=== PATIENT | female | born 1940 | race Caucasian/White ===

== ENCOUNTER → 2016-09-22 | Outpatient (CLI) | payer OTHER ==
--- NOTE | 2016-09-22 18:12 | MA ---
Screening Digital Mammogram With Tomosynthesis and iCAD Indication: Routine screening. Technique: Standard digital CC projections were obtained. Digital breast tomosynthesis was performed in the MLO projection with reconstruction at 1.0-mm slice thickness. Composite MLO views were recons tructed. This examination was processed by the iCAD computer-aided detection system. Comparison: July 2015, April 2014, April 2013, and September 2010. Breast density: Type B. Findings: CAD was reviewed. No suspicious microcalcifications, mass, or architectural distortion. Impression: Negative mammogram BI-RADS 1: Negative Recommendation: Routine screening is recommended in one year. [facility] will send a result letter to the patient. Negative mammography should not preclude additional workup of a clinically suspicious finding. The patient's information is entered into a reminder system with a target due date for her next mammo gram.
== END ==
LOC: FIMAGING 15:52
DX: Z12.31 Encounter for screening mammogram for malignant neoplasm of breast (principal)
CPT/HCPCS: G0202

== ENCOUNTER → 2017-09-25 | Outpatient (CLI) | payer OTHER | LOC: FIMAGING 10:14 | PROVIDERS: ATTEND Family Medicine | DX: Z12.31 Encounter for screening mammogram for malignant neoplasm of breast (principal) ==

== ENCOUNTER 2017-10-17 20:07 | Emergency (ER) | payer OTHER ==
[2017-10-17 20:16] VITALS: TEMP 98.2; O2SAT 96
--- NOTE | 2017-10-17 20:25 | EDPHY ---
H & P Stated Complaint: pt has seen her MD dx with shingles, on meds, pcp told if worse go to ER Time Seen by Provider: 10/17/17 20:25 - Personal History Current Tetanus Diphtheria and Acellular Pertussis (TDAP): Unsure - Medical/Surgical History Hx Asthma: No Hx Chronic Respiratory Disease: No Hx Diabetes: No Hx Cardiac Disease: No Hx Renal Disease: No Hx Cirrhosis: No Hx Alcoholism: No Hx HIV/AIDS: No Hx Splenectomy or Spleen Trauma: No Other PMH: Shingles 2010, 3 melanomas removed, ovar and appy removed, CLL. Lap surgery for hiatal hernia. - Social History Smoking Status: Former smoker Constitutional: Initial Vital Signs Temperature (C) 36.8 C 10/17/17 20:13 Heart Rate 83 10/17/17 20:13 Respiratory Rate 20 10/17/17 20:13 Blood Pressure 177/83 H 10/17/17 20:13 O2 Sat (%) 96 10/17/17 20:13 O2 Delivery Mode Room Air Allergies/Adverse Reactions: No Known Allergies Allergy (Verified 08/07/14 15:53) Home Medications: Medication Instructions Recorded Acyclovir [Zovirax] 400 mg PO BID 06/30/13 Aspirin [Aspirin 81mg (OTC)] 81 mg PO DAILY 06/30/13 Calcium Carbonate [Oyster Shell 500 mg PO DAILY 06/30/13 Calcium 500 mg (OTC)] Cholecalciferol Vit D3 [Vitamin D3 1,000 units PO DAILY 06/30/13 1000 units (OTC)] Levothyroxine [Synthroid 88 mcg 88 mcg PO DAILY06 06/30/13 (RX)] Multivit-Min/FA/Lycopene/Lut 1 each PO DAILY 06/30/13 [Centrum Silver Tablet] Acyclovir 800 mg PO 5XD #50 tab 08/07/14 [place]-3 Fatty Acids [Fish Oil] 08/07/14 Medical Decision Making ED Course/Re-evaluation: CHIEF COMPLAINT: HISTORY OF PRESENT ILLNESS: must have 4 elements: Location, Quality, Severity , Duration, Timing, Context, Modifying Factors, Associated Signs and Symptoms REVIEW OF SYSTEMS: A 10 point review of systems was performed and is negative with the exception of the elements mentioned in the history of present illness. PHYSICAL EXAM: HR, BP, O2 Sat, RR. Temp noted General Appearance: Alert, well hydrated, appropriate, and non-toxic appearing. Head: Atraumatic without scalp tenderness or obvious injury Eyes: Pupils equal, round, reactive to light and accommodation, EOMI, no trauma , no injection. Ears: Clear bilaterally, no perforation, normal landmarks Nose: Atraumatic, no rhinorrhea, clear. Throat: There is no erythema or exudates, no lesions, normal tonsils, mucus membranes moist. Neck: Supple, 2+ carotid upstroke, nontender, no lymphadenopathy. Respiratory: No retractions, no distress, no wheezes, and no accessory muscle use. Lungs are clear to auscultation bilaterally. Cardiovascular: Regular rate and rhythm, no murmurs, rubs, or gallops. Bilateral carotid, radial, dorsalis pedis, and posterior tibial pulses intact. Good capillary refill all extremities. Gastrointestinal: Abdomen is soft, nontender, non-distended, no masses, no rebound, no guarding, no peritoneal signs. Musculoskeletal: Normal active ROM of all extremities, atraumatic. Neurological: Alert, appropriate, and interactive. The patient has normal DTRs and non-focal cranial nerves, motor, sensory, and cerebellar exam. Skin: No rashes, good turgor, no nodules on palpation. Past medical history: Past surgical history: Family history: Social history: DIAGNOSTICS/PROCEDURES/CRITICAL CARE TIME: DIFFERENTIAL DIAGNOSIS: MEDICAL DECISION MAKING: Departure - Departure Condition: Good Referrals: Yola Neal MD [Primary Care Provider] - As per Instructions
--- NOTE | 2017-10-17 20:29 | EDPHY ---
H & P Stated Complaint: pt has seen her MD dx with shingles, on meds, pcp told if worse go to ER Time Seen by Provider: 10/17/17 20:25 HPI/ROS: HPI: This is a 77-year-old female who presents with Chief Complaint: pt has seen her MD dx with shingles, on meds, pcp told if worse go to ER Location: Right parietal, right face Quality: Aching Duration: 3 days Signs and Symptoms: no fever, no nausea, no vomiting, no photophobia, no noise sensitivity, no neck stiffness, no ear pain, no tinnitus, no nasal congestion, no sinus pressure, no weakness, no radiation, no blurred vision, + right eye watering Timing: Acute Severity: [id number] Context: Patient has a history of CLL and shingles in 2010 or 2011 that required hospitalization presents with onset of shingles on Thursday in the same area. She reports that she feels some numbness and tingling and mild nonradiating discomfort on the right side of her face/right parietal scalp area accompanied by some right eye watering. Seen by her primary care provider on Thursday and started on acyclovir 800 mg 5 times per day. She was also seen afternoon by her project associate to have a full workup and showed no ocular involvement of the shingles. Patient reports that she has been maintaining her discomfort of her headache with Tylenol until this afternoon. She is extremely anxious and worried she does not want her shingles progression. Denies any fever/rash/weakness/radiation/photophobia/malaise. She describes a burning headache. Denies any temporal pain/vision changes/neck stiffness. Patient is eating and drinking normally. Modifying Factors: See above Comment: ROS: see HPI Constitutional: No fever, no chills, no weight loss Eyes: No blurred vision Respiratory: No shortness of breath, no cough Cardiovascular: No chest pain, no palpitations Gastrointestinal: No nausea, no vomiting, no diarrhea, no hematemesis, no blood in stool Genitourinary: No dysuria, no blood in urine Extremities: No myalgias, no edema Neurologic: No weakness, no numbness Skin: No rashes, no petechiae Hematologic: No bruising, no bleeding MEDICAL/SURGICAL/SOCIAL HISTORY: Medical/surgical history: Shingles 2010, 3 melanomas removed, ovaries and appy removed, CLL. Lap surgery for hiatal hernia. Social history: Family history noncontributory CONSTITUTIONAL: Elderly very pleasant nontoxic appearing white female, awake and alert, no obvious distress HEENT: Atraumatic and normocephalic, PERRL, EOMI. Conjunctiva clear. Tympanic membranes clear. Oropharynx clear, no exudate and moist pink mucosa. Airway patent. No lymphadenopathy. No temporal pain with palpation. No meningismus. Cardiovascular: Normal S1/S2, regular rate, regular rhythm, without murmur rub or gallop. PULMONARY/CHEST: Symmetrical and nontender. Clear to auscultation bilaterally. Good air movement. No accessory muscle usage. ABDOMEN: Soft, nondistended, nontender, no rebound, no guarding, no peritoneal signs, no masses or organomegaly. No CVAT. EXTREMITIES: 2/2 pulses, strength 5/5, no deformities, no clubbing, no cyanosis or edema. NEUROLOGICAL: no focal neuro deficits. GCS 15. SKIN: Warm and dry, no erythema. no rash. Good capillary refill. Source: Patient Exam Limitations: No limitations - Personal History Current Tetanus Diphtheria and Acellular Pertussis (TDAP): Unsure - Medical/Surgical History Hx Asthma: No Hx Chronic Respiratory Disease: No Hx Diabetes: No Hx Cardiac Disease: No Hx Renal Disease: No Hx Cirrhosis: No Hx Alcoholism: No Hx HIV/AIDS: No Hx Splenectomy or Spleen Trauma: No Other PMH: Shingl2010, 3 melanomas removed, ovar and appy removed, CLL. Lap surgery for hiatal hernia. - Social History Smoking Status: Former smoker Constitutional: Initial Vital Signs Temperature (C) 36.8 C 10/17/17 20:13 Heart Rate 83 10/17/17 20:13 Respiratory Rate 20 10/17/17 20:13 Blood Pressure 177/83 H 10/17/17 20:13 O2 Sat (%) 96 10/17/17 20:13 O2 Delivery Mode Room Air Allergies/Adverse Reactions: No Known Allergies Allergy (Verified 08/07/14 15:53) Home Medications: Medication Instructions Recorded Acyclovir [Zovirax] 400 mg PO BID 06/30/13 Aspirin [Aspirin 81mg (OTC)] 81 mg PO DAILY 06/30/13 Calcium Carbonate [Oyster Shell 500 mg PO DAILY 06/30/13 Calcium 500 mg (OTC)] Cholecalciferol Vit D3 [Vitamin D3 1,000 units PO DAILY 06/30/13 1000 units (OTC)] Levothyroxine [Synthroid 88 mcg 88 mcg PO DAILY06 06/30/13 (RX)] Multivit-Min/FA/Lycopene/Lut 1 each PO DAILY 06/30/13 [Centrum Silver Tablet] Acyclovir 800 mg PO 5XD #50 tab 08/07/14 [place]-3 Fatty Acids [Fish Oil] 08/07/14 Gabapentin [Neurontin 300 MG (*)] 300 mg PO HS #7 cap 10/17/17 oxyCODONE/APAP 5/325 [Percocet 1 - 2 tab PO Q4H PRN #10 tab 10/17/17 5/325 (*)] Medical Decision Making ED Course/Re-evaluation: Patient has no neurological deficits. Discussed obtaining imaging of the brain including head CT or MRI and patient politely declined as she reports that she "is not having a stroke. Followed up with Ophthalmology on Thursday with no signs of ocular involvement of the shingles Labs ordered and Patient patient given 1 L normal saline, IV Benadryl, IV Decadron and p.o. Gabapentin No signs of disseminated/[employer] involvement/cellulitis/ocular involvement/Gabriel's palsy/temporal arteritis Labs reviewed and grossly unremarkable Reassessed patient: Reports moderate relief of symptoms. This patient was seen under the supervision of my secondary supervising physician. I evaluated care for this patient independently. Discussed this patient with Dr. King who did not see the patient. Differential Diagnosis: Headache including but not limited to subarachnoid hemorrhage, migraine headache , tension headache and infectious causes such as meningitis, pharyngitis and sinusitis. - Data Points Laboratory Results: Laboratory Results 10/17/17 21:15 10/17/17 21:15 10/17/17 10/17/17 21:15 21:15 WBC 11.00 10^3/uL H 10^3/uL (3.80-9.50) RBC 4.17 10^6/uL L 10^6/uL (4.18-5.33) Hgb 13.7 g/dL g/dL (12.6-16.3) Hct 40.2 % % (38.0-47.0) MCV 96.4 fL fL (81.5-99.8) MCH 32.9 pg pg (27.9-34.1) MCHC 34.1 g/dL g/dL (32.4-36.7) RDW 13.2 % % (11.5-15.2) Plt Count 190 10^3/uL 10^3/uL (150-400) MPV 10.3 fL fL (8.7-11.7) Neut % (Auto) 25.5 % L % (39.3-74.2) Lymph % (Auto) 65.2 % H % (15.0-45.0) [place] % (Auto) 5.5 % % (4.5-13.0) Eos % (Auto) 3.1 % % (0.6-7.6) Baso % (Auto) 0.5 % % (0.3-1.7) Nucleat RBC Rel Count 0.0 % % (0.0-0.2) Absolute Neuts (auto) 2.81 10^3/uL 10^3/uL (1.70-6.50) Absolute Lymphs (auto) 7.17 10^3/uL H 10^3/uL (1.00-3.00) Absolute Monos (auto) 0.61 10^3/uL 10^3/uL (0.30-0.80) Absolute Eos (auto) 0.34 10^3/uL 10^3/uL (0.03-0.40) Absolute Basos (auto) 0.05 10^3/uL 10^3/uL (0.02-0.10) Absolute Nucleated RBC 0.00 10^3/uL 10^3/uL (0-0.01) Immature Gran % 0.2 % % (0.0-1.1) Immature Gran # 0.02 10^3/uL 10^3/uL (0.00-0.10) ESR 6 MM/HR MM/HR (0-30) Sodium 142 mEq/L mEq/L (135-145) Potassium 3.8 mEq/L mEq/L (3.5-5.2) Chloride 104 mEq/L mEq/L (97-110) Carbon Dioxide 27 mEq/l mEq/l (22-31) Anion Gap 11 mEq/L mEq/L (8-16) BUN 20 mg/dL mg/dL (7-23) Creatinine 0.8 mg/dL mg/dL (0.6-1.0) Estimated GFR > 60 Glucose 86 mg/dL mg/dL (70-100) Calcium 9.7 mg/dL mg/dL (8.5-10.4) Medications Given: Discontinued Medications Dexamethasone (Decadron Injection) 8 mg IVP EDNOW ONE Stop: 10/17/17 20:43 Last Admin: 10/17/17 21:24 Dose: 8 mg Diphenhydramine HCl (Benadryl Injection) 25 mg IVP EDNOW ONE Stop: 10/17/17 20:40 Last Admin: 10/17/17 21:24 Dose: 25 mg Gabapentin (Neurontin) 300 mg PO EDNOW ONE Stop: 10/17/17 20:41 Last Admin: 10/17/17 21:25 Dose: 300 mg Sodium Chloride (Ns) 1,000 mls @ 0 mls/hr IV EDNOW ONE; Wide Open PRN Reason: Protocol Stop: 10/17/17 20:43 Last Admin: 10/17/17 21:24 Dose: 1,000 mls Departure - Departure Disposition: Home, Routine, Self-Care Clinical Impression: Shingles Qualifiers: Herpes zoster complications: without complications Qualified Code(s): B02.9 - Zoster without complications Condition: Good Instructions: Shingles (ED) Additional Instructions: Take acyclovir as prescribed. Use gabapentin at bedtime as needed for neuralgia. Use Percocet as needed for severe breakthrough pain. Do not take Tylenol and Percocet concomitantly. Follow-up with primary care provider in 2-3 days for close follow-up. Return to the ER immediately if you have progressive headaches, neurologic deficits, gait abnormality, visual disturbance, slurred speech, or any other symptom that concerns you. Referrals: Yola Neal MD [Primary Care Provider] - 2-3 days without fail Prescriptions: Gabapentin [Neurontin 300 MG (*)] 300 mg PO HS #7 cap oxyCODONE/APAP 5/325 [Percocet 5/325 (*)] 1 - 2 tab PO Q4H PRN #10 tab PRN Reason: Pain, Severe
[2017-10-17] MEDS ORDERED: GABAPENTIN 300 MG CAP PO ONE (20:40)
[2017-10-17] MEDS ORDERED: NS 1,000 ML IV ONE (20:42)
[2017-10-17] MEDS ORDERED: DEXAMETHASONE 4 MG/ML VIAL IVP ONE (20:42)
--- NOTE | 2017-10-17 21:12 | CPEKG ---
Heart Rate: 64 RR Interval: 938 P-R Interval: 168 QRSD Interval: 136 QT Interval: 444 QTC Interval: 458 P Muddy: 67 QRS Muddy: -28 T Wave Muddy: 84 EKG Severity - ABNORMAL ECG - EKG Impression: SINUS RHYTHM EKG Impression: PROBABLE LEFT ATRIAL ABNORMALITY EKG Impression: LEFT BUNDLE BRANCH BLOCK Electronically Signed By: Vishal King 17-Oct-2017 22:02:59
[2017-10-17 21:33] LABS: PLATELET COUNT 190 10^3/uL (150-400)
[2017-10-17 22:30] VITALS: BP 131/90; PULSE 71; RESP 16
== END 2017-10-17 22:22 | disposition home or self-care (01) ==
DX: B02.9 Zoster without complications (principal); E86.9 Volume depletion, unspecified; Z79.82 Long term (current) use of aspirin; Z87.891 Personal history of nicotine dependence
CPT/HCPCS: 93005; 96361; 96374; 96375; 99284; J1100; J1200

== ENCOUNTER → 2017-11-23 | Outpatient (CLI) | payer OTHER | LOC: FIMAGING 13:18 | PROVIDERS: ATTEND Family Medicine | DX: Z13.820 Encounter for screening for osteoporosis (principal); M85.89 Other specified disorders of bone density and structure, multiple sites; Z78.0 Asymptomatic menopausal state ==

== ENCOUNTER → 2018-09-29 | Outpatient (CLI) | payer OTHER | LOC: FIMAGING 14:31 | PROVIDERS: ATTEND Family Medicine | DX: Z12.31 Encounter for screening mammogram for malignant neoplasm of breast (principal) ==